=== PATIENT | male | born 1955 | race Caucasian/White ===

== ENCOUNTER 2019-02-11 11:00 | Emergency (ER) | payer OTHER ==
[~2019-02-11] VITALS: Ht 180.3 cm; Wt 74.8 kg
[2019-02-11 11:06] VITALS: BP 116/68
[2019-02-11 11:17] LABS: BASOPHILS % (AUTO) 0.4 % (0.0-2.0); EOSINOPHILS % (AUTO) 3.2 % (0.0-6.0); HEMATOCRIT 41 % (39-51); HEMOGLOBIN 13.7 g/dL (13.5-17.5); LYMPHOCYTES # (AUTO) 1.9 /CMM (0.8-4.8); LYMPHOCYTES % (AUTO) 17.5 % (20.0-44.0); MEAN CORPUSCULAR HGB CONC 34 g/dl (31.0-36.0); MEAN CORPUSCULAR VOLUME 97 fL (80-96); MONOCYTES # (AUTO) 1.2 /CMM (0.1-1.30); MONOCYTES % (AUTO) 11.6 % (2.0-12.0); NEUTROPHILS # (AUTO) 7.2 /CMM (1.8-8.9); NEUTROPHILS % (AUTO) 67.3 % (43.0-81.0); PLATELET COUNT (AUTO) 278 /CMM (150-450); RED BLOOD CELL COUNT(AUTO) 4.17 MIL/uL (4.5-6.0); WHITE BLOOD COUNT (AUTO) 10.7 K/uL (4.3-11.0)
[2019-02-11 11:24] LABS: CALCIUM, SERUM 9.1 mg/dL (8.5-10.1); CREATININE 0.9 mg/dL (0.6-1.3); POTASSIUM 4.1 mmol/L (3.5-5.1)
== END 2019-02-11 11:50 | disposition home or self-care (01) ==
LOC: ER 11:03
DX: A49.02 Methicillin resistant Staphylococcus aureus infection, unspecified site (principal); R04.0 Epistaxis; Z59.0 Homelessness
CPT/HCPCS: 36415; 80048-TC; 85025-TC

== ENCOUNTER 2019-02-14 10:56 | Inpatient (IN) | payer OTHER ==
[~2019-02-14] VITALS: Ht 180.3 cm; Wt 74.8 kg
--- NOTE | 2019-02-14 11:15 | NUR ---
from [facility] c/o ble pain, cellulitis. unable to fill antibiotics. on room air, breathing evenly and unlabored. connected to the monitor and pulse ox. kept comfortable, will continue to monitor accordingly.
[2019-02-14] MEDS ORDERED: MORPHINE SULFATE INJ 4 MG/ML DISP.SYRIN ONE (11:56)
[2019-02-14] MEDS ORDERED: CLINDAMYCIN IV RTU IN D5W 900 MG/50 ML PIGGYBACK IV ONE (12:00)
[2019-02-14] MEDS ORDERED: MORPHINE SULFATE INJ 2 MG/ML DISP.SYRIN IV ONE (12:00)
[2019-02-14] MEDS ORDERED: IV NS 0.9% 1,000 ML BAG IV ONE (12:00)
[2019-02-14] MEDS ORDERED: CLINDAMYCIN 900 MG in IV D5W 50 ML IV ONE (12:00)
[2019-02-14 12:03] LABS: BASOPHILS # (AUTO) 0.1 /CMM (0.0-0.2); BASOPHILS % (AUTO) 0.8 % (0.0-2.0); HEMATOCRIT 39 % (39-51); HEMOGLOBIN 13.4 g/dL (13.5-17.5); LYMPHOCYTES # (AUTO) 1.1 /CMM (0.8-4.8); LYMPHOCYTES % (AUTO) 10.2 % (20.0-44.0); MEAN CORPUSCULAR HGB CONC 34 g/dl (31.0-36.0); MEAN CORPUSCULAR VOLUME 96 fL (80-96); MONOCYTES # (AUTO) 1.2 /CMM (0.1-1.30); MONOCYTES % (AUTO) 11.7 % (2.0-12.0); NEUTROPHILS # (AUTO) 8.1 /CMM (1.8-8.9); NEUTROPHILS % (AUTO) 76.3 % (43.0-81.0); PLATELET COUNT (AUTO) 292 /CMM (150-450); RED BLOOD CELL COUNT(AUTO) 4.06 MIL/uL (4.5-6.0); WHITE BLOOD COUNT (AUTO) 10.6 K/uL (4.3-11.0)
[2019-02-14 12:10] LABS: CALCIUM, SERUM 9.6 mg/dL (8.5-10.1); CREATININE 1.1 mg/dL (0.6-1.3); POTASSIUM 4.3 mmol/L (3.5-5.1)
[2019-02-14 12:15] LABS: ALBUMIN 3.4 g/dL (3.4-5.0); BILIRUBIN,DIRECT 0.2 mg/dL (0.0-0.2); BILIRUBIN,TOTAL 0.7 mg/dL (0.2-1.0); TOTAL PROTEIN, SERUM 8.6 g/dL (6.4-8.2)
--- NOTE | 2019-02-14 13:48 | NUR ---
CALLED FOR MS BED
--- NOTE | 2019-02-14 13:58 | NUR ---
GOT BED [id number]
--- NOTE | 2019-02-14 14:16 | NUR ---
CALLED [facility] X 2
--- NOTE | 2019-02-14 14:28 | NUR ---
Report given to Danelle DIEHL for david.
--- NOTE | 2019-02-14 15:35 | NUR ---
wheeled patient via gurney accompanied by EMT in no distress, Danelle RN at bedside to assume care.
--- NOTE | 2019-02-14 15:36 | NUR ---
RN NOTES Patient received on room air, no sob noted, patient denies pain at this time and vital signs stable. Patient has all belongings with him and states that nothing is missing. Patient's lower bilaterl leg taken a photo of. Bed at the lowest setting, call light within reach, side rails up x2.
[2019-02-14 16:15] VITALS: BP 126/68
[2019-02-14] MEDS ORDERED: Z GUARD REMEDY 2 OZ OINT TP PRN (18:00)
[2019-02-14] MEDS ORDERED: ZOLPIDEM TARTRATE 5 MG TABLET PO PRN (18:00)
[2019-02-14] MEDS ORDERED: ONDANSETRON HCL/PF 4 MG/2 ML VIAL IVP PRN (18:00)
[2019-02-14] MEDS ORDERED: ACETAMINOPHEN 325 MG TABLET PO PRN (18:00)
[2019-02-14] MEDS ORDERED: MAGNESIUM HYDROXIDE 30 ML UDC PO PRN (18:00)
--- NOTE | 2019-02-14 18:04 | NUR ---
RN MS CLOSING NOTES Patient remains on room air, a/o x3, no sob noted and vital signs stable. Patient denies pain at this time and is on a regular diet. Patient has bilateral lower leg wounds. Patient refused to have any other parts of the body checked. Bed at the lowest setting, call light within reach, side rails up x2. Will give report to NOC RN for CHRIS bedside
[2019-02-14] MEDS: HYDROCODONE/APAP 5/325MG 1 EACH TABLET PO PRN ×2 (18:48→22:21)
[2019-02-14 20:00] VITALS: BP 106/58
[2019-02-14] MEDS: CLINDAMYCIN 600 MG in IV D5W 50 ML IV SCH (21:16)
[2019-02-15] MEDS: CLINDAMYCIN 600 MG in IV D5W 50 ML IV SCH ×3 (05:16→21:22)
[2019-02-15] MEDS: HYDROCODONE/APAP 5/325MG 1 EACH TABLET PO PRN ×4 (05:21→21:26)
--- NOTE | 2019-02-15 06:22 | NUR ---
MS RN NOTES AWAKE & RESPONSIVE. NOT IN ANY DISTRESS. NO SOB NOTED. DENIES ANY PAIN OR DISCOMFORT AT THIS TIME. WITH IV-HL PATENT & INTACT. MONITORED ACCORDINGLY. CALL LIGHT WITHIN REACH. BED IN LOWEST POSITION. SR UP X 2 FOR SAFETY. WILL ENDORSE TO NEXT SHIFT.
--- NOTE | 2019-02-15 07:15 | NUR ---
RN OPENING NOTE PT WAS RECEIVED RESTING IN BED AT LOWEST AND LOCKED POSITION WITH SIDE RAILS UP X2, A/O X3 BREATHING EVEN AND UNLABORED ON RA, NO S/S OF ANY DISTRESS OR PAIN AT THIS TIME, IV IS CURRENTLY PATENT AND INTACT, SAFETY PRECAUTIONS IN PLACE, CALL LIGHT IN REACH, WILL MONITOR ACCORDINGLY
[2019-02-15 07:26] LABS: HEMATOCRIT 36 % (39-51); HEMOGLOBIN 12.2 g/dL (13.5-17.5); MEAN CORPUSCULAR HGB CONC 34 g/dl (31.0-36.0); MEAN CORPUSCULAR VOLUME 96 fL (80-96); PLATELET COUNT (AUTO) 276 /CMM (150-450); WHITE BLOOD COUNT (AUTO) 8.5 K/uL (4.3-11.0)
[2019-02-15 07:27] LABS: BASOPHILS % (AUTO) 0.3 % (0.0-2.0); EOSINOPHILS % (AUTO) 2.2 % (0.0-6.0); LYMPHOCYTES # (AUTO) 1.5 /CMM (0.8-4.8); LYMPHOCYTES % (AUTO) 17.1 % (20.0-44.0); MONOCYTES # (AUTO) 1.2 /CMM (0.1-1.30); NEUTROPHILS # (AUTO) 5.6 /CMM (1.8-8.9); NEUTROPHILS % (AUTO) 66.4 % (43.0-81.0)
[2019-02-15 07:38] LABS: CALCIUM, SERUM 8.4 mg/dL (8.5-10.1); CREATININE 0.9 mg/dL (0.6-1.3); MAGNESIUM 2.1 mg/dL (1.8-2.4); PHOSPHORUS 3.7 mg/dL (2.5-4.9); POTASSIUM 4.1 mmol/L (3.5-5.1)
[2019-02-15 08:00] VITALS: BP 98/51
--- NOTE | 2019-02-15 11:16 | NUR ---
WOUND CARE CONSULT: PT PRESENTS WITH BILATERAL LOWER LEG RAISED WOUNDS WITH REDNESS AND EDEMA, CALLUSED FEET AND HEELS, PRESENT ON ADMISSION. RECOMMEND DPM CONSULT. DR PNEA NOTIFIED OF CONSULT REQUEST. RECOMMENDATIONS MADE FOR SKIN PROTECTION. DISCUSSED WITH NURSING STAFF. WILL SEE PRN. ANDREWS IN AGREEMENT WITH PLAN OF CARE. Addendum: 02/15/19 at 1118 by OLIVER CHRIS WNDNU Amended: Links added.
--- NOTE | 2019-02-15 13:12 | NUR ---
RN NOTE ATTEMPTED TO TAKE WOUND CULTURE OF PT LEG AT THIS TIME, PT REFUSED STATING "I WANT TO SLEEP, DO IT LATER".
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
[2019-02-15] MEDS: MAG HYDROX/AL HYDROX/SIMETH 30 ML UDC PO PRN (15:52)
[2019-02-15] MEDS: GENTAMICIN 0.1% OINT 15 GM TUBE TP SCH (16:02)
[2019-02-15] MEDS: CLOTRIMAZOLE 1% 15 GM TUBE TP SCH (16:02)
[2019-02-15 16:10] VITALS: BP 120/67
--- NOTE | 2019-02-15 18:10 | NUR ---
RN CLOSING NOTE PT IN BED AT LOWEST AND LOCKED POSITION WITH SIDE RAILS UP X2, A/O X3 BREATHING EVEN AND UNLABORED WITH NO DISTRESS OR PAIN, IV IS PATENT AND INTACT, SAFETY PRECAUTIONS IN PLACE, CALL LIGHT IN REACH, ALL NEEDS ATTENDED TO THROUGHOUT SHIFT, WILL ENDORSE TO NIGHT RN FOR CHRIS
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
--- NOTE | 2019-02-15 19:35 | NUR ---
RN NOTES RECEIVED PATIENT IN BED AT LOWEST AND LOCKED POSITION WITH SIDE RAILS UP X2, A/O X3 BREATHING EVEN AND UNLABORED WITH NO DISTRESS OR PAIN, IV IS PATENT AND INTACT, SAFETY PRECAUTIONS IN PLACE, CALL LIGHT WITHIN EASY REACH, ALL NEEDS ATTENDED, DENIES PAIN AT THIS TIME, WILL CONTINUE TO MONITOR ACCORDINGLY.
[2019-02-15 20:00] VITALS: BP 102/64
[2019-02-15 20:35] VITALS: BP 102/64
[2019-02-16] MEDS: MAG HYDROX/AL HYDROX/SIMETH 30 ML UDC PO PRN (01:49)
[2019-02-16] MEDS: CLINDAMYCIN 600 MG in IV D5W 50 ML IV SCH (05:21)
--- NOTE | 2019-02-16 06:56 | NUR ---
RN NOTES ALL NEEDS ATTENDED, ABLE TO REST AND SLEPT AT INTERVALS, PATIENT IN BED AT LOWEST AND LOCKED POSITION WITH SIDE RAILS UP X2, A/O X3 BREATHING EVEN AND UNLABORED WITH NO DISTRESS OR PAIN, IV IS PATENT AND INTACT, SAFETY PRECAUTIONS IN PLACE, CALL LIGHT WITHIN EASY REACH, ALL NEEDS ATTENDED, DENIES PAIN AT THIS TIME, WILL ENDORSE TO AM NURSE FOR CONTINUITY OF CARE.
[2019-02-16 07:01] LABS: BASOPHILS % (AUTO) 0.4 % (0.0-2.0); EOSINOPHILS % (AUTO) 2.5 % (0.0-6.0); HEMATOCRIT 37 % (39-51); HEMOGLOBIN 12.6 g/dL (13.5-17.5); LYMPHOCYTES # (AUTO) 1.5 /CMM (0.8-4.8); LYMPHOCYTES % (AUTO) 16.6 % (20.0-44.0); MEAN CORPUSCULAR HGB CONC 34 g/dl (31.0-36.0); MEAN CORPUSCULAR VOLUME 96 fL (80-96); MONOCYTES # (AUTO) 1.2 /CMM (0.1-1.30); MONOCYTES % (AUTO) 13.4 % (2.0-12.0); NEUTROPHILS # (AUTO) 6.2 /CMM (1.8-8.9); NEUTROPHILS % (AUTO) 67.1 % (43.0-81.0); PLATELET COUNT (AUTO) 302 /CMM (150-450); RED BLOOD CELL COUNT(AUTO) 3.88 MIL/uL (4.5-6.0); WHITE BLOOD COUNT (AUTO) 9.2 K/uL (4.3-11.0)
[2019-02-16 07:41] LABS: CALCIUM, SERUM 8.5 mg/dL (8.5-10.1); CREATININE 0.9 mg/dL (0.6-1.3); POTASSIUM 4.2 mmol/L (3.5-5.1)
[2019-02-16 08:00] VITALS: BP 114/65
[2019-02-16] MEDS: DAKINS QUARTER STRENGTH (0.125%) 480 ML BOTTLE TOP SCH (10:36)
[2019-02-16] MEDS: CLOTRIMAZOLE 1% 15 GM TUBE TP SCH ×2 (10:40→17:36)
[2019-02-16] MEDS: GENTAMICIN 0.1% OINT 15 GM TUBE TP SCH ×2 (10:40→17:36)
--- NOTE | 2019-02-16 12:00 | NUR ---
escobar walsh dpm in to see pt.dressing changed.
[2019-02-16] MEDS: CLINDAMYCIN HCL 150 MG CAPSULE PO SCH ×2 (13:12→20:18)
[2019-02-16] MEDS: HYDROCODONE/APAP 5/325MG 1 EACH TABLET PO PRN ×2 (13:12→20:19)
--- NOTE | 2019-02-16 13:15 | NUR ---
medicated for generalized pain with norco.
[2019-02-16] MEDS ORDERED: CLIN150C15 PO (15:16)
[2019-02-16 16:00] VITALS: BP 123/66
--- NOTE | 2019-02-16 17:00 | NUR ---
case mgmt.here,yonny garland spoke with pt. and he is agreeable to be dc'd to [facility],states he does not want snf placement.
--- NOTE | 2019-02-16 18:20 | NUR ---
rn in to rm. to have all papers signed and now pt. refusing to leave.case mgmt. called and gone for the day.chargeback analyst notified and avtar figueroa called and agreed to hold discharge till tomorrow.all paperwork to chart.
--- NOTE | 2019-02-16 19:10 | NUR ---
MS RN NOTES RECEIVED PT IN BED AWAKE AND ABLE TO MAKE NEEDS KNOWN. PT A/O X3. RESPIRATIONS EVEN AND UNLABORED WITH NO S/S OF ACUTE DISTRESS OR SOB NOTED. NO COMPLAINTS OF PAIN AT THIS TIME. PT NOTED WITH NO IV ACCESS AT THIS TIME. BED IN LOWEST LOCKED POSITION WITH SIDE RAILS UP X2. CALL LIGHT WITHIN REACH. WILL CONTINUE TO MONITOR.
[2019-02-16 20:00] VITALS: BP 110/65
--- NOTE | 2019-02-16 20:20 | NUR ---
MS RN NOTES NORCO GIVEN FOR PAIN IN L/R LEG. WILL CONTINUE TO MONITOR.
--- NOTE | 2019-02-16 21:00 | NUR ---
MS RN NOTES PT LEFT LEG DRESSING NOTED SOILED WITH BLOOD. LEFT LEG TREATMENT DONE AND DRESSING CHANGED. WILL CONTINUE TO MONITOR.
[2019-02-17] MEDS: CLINDAMYCIN HCL 150 MG CAPSULE PO SCH (06:02)
--- NOTE | 2019-02-17 06:54 | NUR ---
MS RN NOTES PT IN BED ASLEEP BUT EASILY AWOKEN VERBALLY OR BY TOUCH. PT A/O X3 AND ABLE TO MAKE NEEDS KNOWN. RESPIRATIONS EVEN AND UNLABORED WITH NO S/S OF ACUTE DISTRESS OR SOB NOTED THROUGHOUT SHIFT. NO COMPLAINTS OF PAIN AT THIS TIME. PT NOTED WITH NO IV ACCESS AT THIS TIME. BED IN LOWEST LOCKED POSITION WITH SIDE RAILS UP X2. CALL LIGHT WITHIN REACH. WILL ENDORSE TO ONCOMING NURSE FOR CHRIS.
--- NOTE | 2019-02-17 07:16 | NUR ---
RN OPENING NOTE PT WAS RECEIVED RESTING IN BED AT LOWEST AND LOCKED POSITION WITH SIDE RAILS UP X2, A/O X3 BREATHING EVEN AND UNLABORED ON RA, NO S/S OF ANY DISTRESS OR PAIN AT THIS TIME, NO IV ACCESS PRESENT AT THIS TIME, SAFETY PRECAUTIONS IN PLACE, CALL LIGHT IN REACH, WILL MONITOR ACCORDINGLY
[2019-02-17 08:00] VITALS: BP 114/64
[2019-02-17] MEDS: GENTAMICIN 0.1% OINT 15 GM TUBE TP SCH (08:48)
[2019-02-17] MEDS: CLOTRIMAZOLE 1% 15 GM TUBE TP SCH (08:48)
[2019-02-17] MEDS: DAKINS QUARTER STRENGTH (0.125%) 480 ML BOTTLE TOP SCH (08:48)
[2019-02-17] MEDS: HYDROCODONE/APAP 5/325MG 1 EACH TABLET PO PRN (08:54)
--- NOTE | 2019-02-17 09:17 | NUR ---
DISCHARGE NOTE PT WAS D/C AT THIS TIME IN MEDICALLY STABLE CONDITION BACK HOME WITH TAP CARD, IV AND ID BAND WERE REMOVED, PT REFUSED FOR PHOTOS OF WOUND TO BE TAKEN, HE ALSO REFUSED TO SIGN D/C PAPERWORK, EXITCARE, AND HOMELESS WAIVER. PLATFORM MATERIAL HANDLER MANAGER CARLOS INFORMED AND MADE AWARE. ALL NEEDS WERE ATTENDED TO DURING HIS STAY, HOMELESS EDUCATION AND HALF-WAY INFORMATION PROVIDED. PT WAS TAKEN DOWN BY LOCKER ROOM MANAGER WHERE HE LEFT AMBULATORY WITH WALKER AT THIS TIME Addendum: 02/17/19 at 0922 by BRANDY HARO RN PRESCRIPTION WAS ALSO PROVIDED
== END 2019-02-17 09:30 | disposition home or self-care (01) | DRG 383 ==
LOC: ER 11:02 → MED 14:48
PROVIDERS: ADMIT Hospitalist; ATTEND Hospitalist
PROC: 0HBRXZZ Excision of Toe Nail, External Approach (ICD-10-PCS; principal; 2019-02-15)
DX: L03.116 Cellulitis of left lower limb (principal); B35.1 Tinea unguium; B35.3 Tinea pedis; F17.210 Nicotine dependence, cigarettes, uncomplicated; S80.11XA Contusion of right lower leg, initial encounter; Z59.0 Homelessness; L03.115 Cellulitis of right lower limb; Z91.19 Patient's noncompliance with other medical treatment and regimen; S80.12XA Contusion of left lower leg, initial encounter; X58.XXXA Exposure to other specified factors, initial encounter; Y93.9 Activity, unspecified; Y92.9 Unspecified place or not applicable; Z71.6 Tobacco abuse counseling
CPT/HCPCS: 36415; 80048-TC; 80061-TC; 80076-TC; 83605-TC; 83735-TC; 84100-TC; 85025-TC; 87040-TC; 87070-TC; 87081-TC; 97116-TC; 97530-TC; A6253; A6403; G0378; J2270; J3490; J7030; J7050; J7060